=== PATIENT | female | born 1995 | race American Indian/Alaskan Native ===

== ENCOUNTER 2019-05-25 13:47 | Emergency (ER) | payer MEDICAID, OTHER ==
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
[2019-05-25] MEDS ORDERED: NORCO 7.5/325 PO ONE (15:24)
[2019-05-25 16:47] LABS: HCG Qualitative,Urine Positive (Negative)
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
[2019-05-25] MEDS ORDERED: BOOSTRIX IM ONE (19:05)
[2019-05-25] MEDS ORDERED: CLEOCIN PO ONE (20:00)
[2019-05-25] MEDS ORDERED: CLEOCIN IM ONE (20:05)
[2019-05-25 20:26] VITALS: BP 118/66
== END 2019-05-25 20:27 | disposition home or self-care (01) ==
LOC: ED 13:47
DX: S02.609B Fracture of mandible, unspecified, initial encounter for open fracture (principal); F17.200 Nicotine dependence, unspecified, uncomplicated; Z79.899 Other long term (current) drug therapy; Y08.89XA Assault by other specified means, initial encounter; Y93.89 Activity, other specified; Y92.89 Other specified places as the place of occurrence of the external cause; Y99.8 Other external cause status
CPT/HCPCS: 70486; 81025; 90471; 90715; 96372